=== PATIENT | female | born 1945 | race Caucasian/White ===

== ENCOUNTER 2020-07-18 19:11 | Emergency (ER) | payer MEDICARE, OTHER ==
[2020-07-18] MEDS ORDERED: Acetaminophen 500 MG Tab PO ONE (20:16)
--- NOTE | 2020-07-18 20:22 | EDM.PDOC ---
ED HPI GENERAL MEDICAL PROBLEM - General Chief Complaint: Head Injury Stated Complaint: FELL Time Seen by Provider: 07/18/20 20:18 Source of Information: Reports: Patient History Limitations: Reports: No Limitations - History of Present Illness INITIAL COMMENTS - FREE TEXT/NARRATIVE: Smitha fell at home,hit her head,sustained a lac to the forehead. No LOC. No vomiting.Denies neck pain Frontal headache Pain Score (Numeric/FACES): 6 - Related Data Allergies Allergy/AdvReac Type Severity Reaction Status Date / Time No Known Allergies Allergy Verified 07/18/20 19:18 Home Meds: Home Meds Calcium Carbonate [Calcium] 600 mg PO DAILY 07/18/20 [History] Cholecalciferol (Vitamin D3) [Vitamin D3] 1,000 unit PO DAILY 07/18/20 [History] Past Medical History Genitourinary History: Reports: None SURVEY OPERATIONS DIRECTOR History: Reports: Other SURVEY OPERATIONS DIRECTOR History: [id number] Musculoskeletal History: Reports: Fracture Other Musculoskeletal History: hx fx toes - Infectious Disease History Infectious Disease History: Reports: Chicken Pox, Measles, Mumps - Past Surgical History Female Surgical History: Reports: Tubal Ligation Social & Family History - Tobacco Use Tobacco Use Status *Q: Former Tobacco User Years of Tobacco use: 47 Used Tobacco, but Quit: Yes Month/Year Tobacco Last Used: 2019 - Caffeine Use Caffeine Use: Reports: Coffee - Alcohol Use Days Per Week of Alcohol Use: 1 Number of Drinks Per Day: 3 Total Drinks Per Week: 3 - Recreational Drug Use Recreational Drug Use: No ED ROS GENERAL - Review of Systems Review Of Systems: Comprehensive ROS is negative, except as noted in HPI. 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 nml As Tested, Oriented x 3 Skin: Normal Color - [place] Coma Score Best Eye Response ([place]): (4) Open Spontaneously Best Verbal Response ([place]): (5) Oriented Best Motor Response ([place]): (6) Obeys Commands ED LACERATION/WOUND & YARI PROC - Laceration/Wound Repair Right Head Lac/wound length in cm: 4 Appearance: Subcutaneous Distal NVT: Neuro & Vascular Intact Exploration/Debridement/Repair: In a Bloodless Field Closed with: Sonia Course - Vital Signs Last Recorded V/S: Last Vital Signs Temp 95.9 F L 07/18/20 19:11 Pulse 87 07/18/20 19:11 Resp 18 07/18/20 19:11 BP 148/78 H 07/18/20 19:11 Pulse Ox 100 07/18/20 19:11 - Orders/Labs/Meds Orders: Active Orders 24 hr Category Date Time Status Head wo Cont [CT] Stat Exams 07/18/20 19:40 Ordered Meds: Medications Discontinued Medications Generic Name Dose Route Start Last Admin Trade Name George PRN Reason Stop Dose Admin Acetaminophen 1,000 mg 07/18/20 20:16 Tylenol Extra Strength PO 07/18/20 20:17 ONETIME ONE Departure - Departure Time of Disposition: 20:21 Disposition: Home, Self-Care 01 Condition: Good Clinical Impression: Scalp laceration - Discharge Information Referrals: Jb Stevens MD [Primary Care Provider] - Sepsis Event Note (ED) - Evaluation Sepsis Screening Result: No Definite Risk - Focused Exam Vital Signs: Vital Signs Temp Pulse Resp BP Pulse Ox 07/18/20 19:11 95.9 F L 87 18 148/78 H 100 - Problem List & Annotations (1) Scalp laceration SNOMED Code(s): 253094302 Code(s): S01.01XA - LACERATION WITHOUT FOREIGN BODY OF SCALP, INITIAL ENCOUNTER Status: Acute Current Visit: Yes - Problem List Review Problem List Initiated/Reviewed/Updated: Yes - My Orders Last 24 Hours: My Active Orders 07/18/20 19:40 Head wo Cont [CT] Stat - Assessment/Plan Last 24 Hours: My Active Orders 07/18/20 19:40 Head wo Cont [CT] Stat Plan: Given Tylenol,5 sonia. DC home
== END 2020-07-18 20:42 | disposition home or self-care (01) ==
LOC: FB.ED 19:11
DX: S01.01XA Laceration without foreign body of scalp, initial encounter (principal); Z87.891 Personal history of nicotine dependence; W01.198A Fall on same level from slipping, tripping and stumbling with subsequent striking against other object, initial encounter; Y92.009 Unspecified place in unspecified non-institutional (private) residence as the place of occurrence of the external cause
CPT/HCPCS: 12002; 12013; 70450; 99282; 99283; A9270